=== PATIENT | female | born 1995 | race Caucasian/White ===

== ENCOUNTER 2018-04-27 11:39 | Day surgery (SDC) | payer OTHER ==
[~2018-04-27 11:39] MED LIST: Buffered Lidocaine 0.9% SYRIN* 5 ML/SYR SYRINGE INTRADERM ONE
[2018-04-27] MEDS ORDERED: fentaNYL* 50 MCG/ML 2 ML VIAL (100 MCG VIAL) ONE (12:32)
[2018-04-27] MEDS ORDERED: Midazolam* 1 MG/ML 5 ML VIAL (5 MG) ONE (12:32)
[2018-04-27] MEDS ORDERED: DiMENhydriNATE IV* 50 MG/ML VIAL IV PUSH PRN (12:44)
[2018-04-27] MEDS ORDERED: Naloxone* 0.4 MG/ML 1 ML VIAL IV PRN (12:44)
[2018-04-27] MEDS ORDERED: Acetaminophen TAB* 325 MG PO PRN (12:44)
[2018-04-27] MEDS ORDERED: Midazolam* 1 MG/ML 2 ML VIAL (2 MG) ONE (13:09)
[2018-04-27] MEDS ORDERED: Ondansetron INJ* 2 MG/ML VIAL ONE (13:26)
[2018-04-27] MEDS ORDERED: Propofol* 10 MG/ML 20 ML BTL ONE (13:26)
[2018-04-27] MEDS ORDERED: Lidocaine 2% PF * 5 ML VIAL ONE (13:26)
[2018-04-27 13:46] VITALS: BP 122/75
--- NOTE | 2018-04-28 06:36 | PRO ---
CC: Dr. Berman.* DATE OF PROCEDURE: 04/27/18 [facility] PROCEDURE: EGD with biopsy. REFERRING PHYSICIAN: Dr. Berman. INDICATION: Pre-bariatric screening. No GI symptoms. MEDICATIONS: Given by Anesthesia. DESCRIPTION OF PROCEDURE: Full disclosure of risk was reviewed with the patient as detailed on the consent form. The patient was placed in the left lateral decubitus position and monitored with continuous pulse oximetry, interval blood pressure monitoring, and direct observation. A bite-block was placed between the teeth. An Olympus gastroscope was then inserted into the patient's mouth and advanced down the esophagus, into the stomach and into the distal duodenum. The findings are described below. FINDINGS: Esophagus was a normal tubular structure without rings or strictures. The GE junction and Z-line occurred at the same level. There was a slight textural change at the Z-line, although biopsies were not obtained as there was not more than a 1-cm proximal tongue of abnormal mucosa. Additionally , the patient was having some difficulties sedating well. The scope was advanced into the stomach. The stomach was examined in forward and retroflexed views. The gastric mucosa was mildly erythematous in the antrum. There are no erosions or ulcers. Biopsy obtained for CLOtest. The scope was then advanced into the duodenum. The duodenum was normal in appearance to the 3rd portion. The scope was then withdrawn from the patient. The patient tolerated the procedure well and recovered well in the GI recovery area. IMPRESSION: 1. Mild gastric erythema and slight textural change in the Z-line may suggest some acid reflux. We will await CLOtest results. 2. Otherwise, normal exam. RECOMMENDATION: Consider H2 rosi or PPI use for any GI symptoms. Thank you very much for this referral. [id number]/[facility] #: [id number] [facility]
== END 2018-04-27 14:12 | disposition home or self-care (01) ==
LOC: OR 11:39
PROVIDERS: ATTEND Internal Medicine Gastroenterology
DX: E66.9 Obesity, unspecified (principal); Z68.44 Body mass index [BMI] 60.0-69.9, adult; Z01.818 Encounter for other preprocedural examination; J45.909 Unspecified asthma, uncomplicated; F41.9 Anxiety disorder, unspecified
CPT/HCPCS: 87077; J2250; J2405; J2704; J3010

== ENCOUNTER 2018-07-13 11:50 | Inpatient (IN) | payer OTHER ==
[~2018-07-13 11:50] MED LIST changes: -Buffered Lidocaine 0.9% SYRIN* 5 ML/SYR SYRINGE INTRADERM ONE; +Buffered Lidocaine 1% SYRIN* 1 ML/SYRINGE INTRADERM ONE; +Famotidine IV* 10 MG/ML 2 ML (20 mg) IV ONE; +Lactated Ringers 1000 ML Bag* 1,000 ML IV SCH
[2018-07-13] MEDS ORDERED: Famotidine IV* 10 MG/ML 2 ML (20 mg) ONE (12:25)
[2018-07-13] MEDS ORDERED: Heparin VIAL(*) 5000 UNITS/ML VIAL (FIVE THOUSAND) ONE (12:25)
[2018-07-13] MEDS ORDERED: ceFAZolin 2 GM PREMIX in ORs 2 GM/50 ML BAG IVPB ONE (12:25)
[2018-07-13] MEDS ORDERED: ceFAZolin 1 GM ADVAN(*) 1 GM ADDV.VIAL IVPB ONE (12:25)
[2018-07-13] MEDS ORDERED: Ondansetron INJ* 2 MG/ML VIAL ONE ×2 (13:04→17:36)
[2018-07-13] MEDS ORDERED: Dexamethasone IV* 4 MG/ML 1 ML (4 MG) ONE (13:04)
[2018-07-13] MEDS ORDERED: Ketorolac INJ* 30 MG/ML 1 ML VIAL ONE (13:04)
[2018-07-13] MEDS ORDERED: Propofol* 10 MG/ML 20 ML BTL ONE (13:04)
[2018-07-13] MEDS ORDERED: Lidocaine 2% PF * 5 ML VIAL ONE (13:04)
[2018-07-13] MEDS ORDERED: fentaNYL* 50 MCG/ML 5 ML VIAL (250 MCG VIAL) ONE ×3 (13:05→15:09)
[2018-07-13] MEDS ORDERED: Rocuronium* 10 MG/ML VIAL ONE ×2 (13:05→14:32)
[2018-07-13] MEDS ORDERED: Midazolam* 1 MG/ML 5 ML VIAL (5 MG) ONE (13:06)
[2018-07-13] MEDS ORDERED: Bupivacaine 0.25% W/EPI* 10 ML SDV ONE ×2 (13:42→14:48)
[2018-07-13] MEDS ORDERED: Methylene Blue 0.5 %* 50 MG/10 ML AMP IV ONE (13:42)
[2018-07-13] MEDS ORDERED: Bupivacaine 0.5% W/EPI SDV* 30 ML VIAL ONE (14:46)
[2018-07-13] MEDS ORDERED: Glycopyrrolate IV* 0.2 MG/ML 1 ML VIAL ONE (16:06)
[2018-07-13] MEDS ORDERED: Neostigmine Methylsulfate* 1 MG/ML 10 ML VIAL (1 mg/ml) ONE (16:06)
[2018-07-13] MEDS ORDERED: HYDROmorphone INJ1* 1 MG/ML SYRINGE ONE (16:11)
[2018-07-13] MEDS ORDERED: Naloxone* 0.4 MG/ML 1 ML VIAL IV PRN (16:23)
[2018-07-13] MEDS ORDERED: Ondansetron INJ* 2 MG/ML VIAL IV PRN ×2 (16:23→16:52)
[2018-07-13] MEDS ORDERED: fentaNYL* 50 MCG/ML 2 ML VIAL (100 MCG VIAL) IV PRN (16:23)
[2018-07-13] MEDS ORDERED: Acetaminophen ADULT LIQ* 650 MG/20.3 ML UDC PO PRN (16:52)
--- NOTE | 2018-07-13 16:52 | OP ---
Operative Report - Blank - Operative Report Date of Operation: 07/13/18 Note: Brief Operative Note Preop Dx: morbid obesity Postop Dx: same Procedure: laparoscopic annalisa en y gastric bypass Anesthesia: GET Surgeon: Cullen Pump House Operator: JIM Chang Fluids: 2000 ml RL EBL: < 50 ml Specimen: none Drains:none Findings: dictated
[2018-07-13] MEDS ORDERED: HYDROmorphone INJ1* 1 MG/ML SYRINGE IV SLOW PU PRN (16:56)
[2018-07-13] MEDS ORDERED: Albuterol HFA INHALER* 8 gm MDI INH PRN (16:57)
[2018-07-13] MEDS ORDERED: hydrALAZINE IV* 20 MG/ML VIAL ONE (17:23)
[2018-07-13] MEDS ORDERED: fentaNYL* 50 MCG/ML 2 ML VIAL (100 MCG VIAL) ONE (17:36)
[2018-07-13] MEDS: Ketorolac INJ* 30 MG/ML 1 ML VIAL IV PRN (19:21)
[2018-07-13] MEDS: Lactated Ringers 1000 ML Bag* 1,000 ML IV SCH (19:22)
--- NOTE | 2018-07-13 19:37 | OP ---
CC: Jennifer Al NP; [facility] * DATE OF OPERATION: 07/13/18 - ROOM #351 DATE OF : [birth year] SURGEON: Van Berman MD MAIL HANDLER EQUIPMENT OPERATOR: JIM Collier ANESTHESIOLOGIST: Dr. Phelps. ANESTHESIA: General anesthesia. PRE-OP DIAGNOSIS: Clinically severe obesity. POST-OP DIAGNOSIS: Clinically severe obesity. OPERATIVE PROCEDURE: Laparoscopic Riley-en-Y gastric bypass. ESTIMATED BLOOD LOSS: Minimal. FLUIDS: Crystalloid fluid given, please see record. SPECIMEN: None. DRAINS: None. COUNTS: Lap pad count and instrument count correct at the end of the procedure. DESCRIPTION OF PROCEDURE: The patient was identified in the preoperative area, marked, consent was signed. She was taken back to the operating room, placed on the operating table in the supine position. Preoperative antibiotics were given. Sequential devices were placed on bilateral lower extremities. General anesthesia was induced. The patient's abdomen was prepped and draped in standard surgical fashion. A time-out was performed. Folds of the umbilicus were elevated anteriorly and a Veress needle was inserted into the abdominal cavity, which was then allowed to insufflate to a pressure of 15 mmHg. The patient tolerated insufflation well. [place] between the xiphoid and the umbilicus, a 12-mm trocar was inserted. Laparoscope was inserted through this. There was no evidence of injury from the trocar insertion or from the Veress needle which was then removed. Additional trocars were then placed in the following positions: A 12-mm and a 5 -mm in the left upper quadrant, and a 12-mm and a 5-mm in the right upper quadrant. The liver appeared enlarged. A Layton retractor was inserted through a subxiphoid incision and the left lateral lobe of the liver was reflected anteriorly to the right exposing the gastroesophageal fat pad and the hiatus. There appeared to be no hiatal hernia. The liver was enlarged and it was somewhat difficult to get under the liver, but we had a good imaging of the proximal stomach. Next, the gastroesophageal fat pad was dissected free and we extended our dissection to the left racheal. Next, a retrogastric tunnel was made at the third crossing vessel and a 45-mm beltrán SANDEE stapling device was fired across this. We completed a small stomach pouch with an additional 60-mm beltrán SANDEE stapling device followed by a 60-mm purple SANDEE stapling device with reinforcement strips as we extended this up towards our initial dissected area. There appeared to be no posterior hiatal hernia. The pouch was of appropriate sizing and the Evan tube was passed by the anesthesiologist into the distal stomach to determine its sizing. Next, the omentum was reflected superiorly. Transverse colon was identified. Ligament of Treitz identified and then approximately 50 cm was counted off from the ligament of Treitz. We made a window through the base of the mesentery where we would likely do our transection of the small intestine. This was held up in apposition to the stomach pouch and sutured with stay sutures using 2-0 silk sutures in interrupted fashion. Next, gastrotomy was made over the Evan tube with electrocautery and enterotomy was made on what would become the biliopancreatic limb assuring its positioning. The two were then mated with a 30-mm beltrán SANDEE stapling device, firing it through the entirety of the stapler and then we looked through, the hemostasis was good. The anastomosis was wide open and we reapproximated the common defect with a running #3 PDS suture, starting superiorly and inferiorly and tying them in the middle. Next, a Evan tube was passed through the anastomosis with ease into the proximal Riley limb. We backed this out to allow us to transect the small bowel at the previous window. This was not too long, just under 2 cm from the anastomosis. Once this was stapled off, a methylene blue dye test was performed. The Evan tube was reinserted through the anastomosis into the proximal Riley limb, which was then clamped. Methylene blue dye test was performed in a standard fashion with a gauze behind the anastomosis and on top of it, it showed no evidence of extravasation after insertion of a fair amount of blue dye that could be seen both in the proximal Riley limb and the stomach pouch. This dye was removed by the anesthesiologist and the gauze was removed and it was negative for any extravasation, it was passed off. Next, the Riley limb was counted off approximately 100 cm, we brought what would become the jejunojejunostomy to our biliopancreatic limb. Enterotomies were made in a standard fashion and a 60-mm SANDEE stapler beltrán was fired to create the anastomosis. The defect was reapproximated with interrupted 2-0 silk sutures in a [id number] fashion and the mesenteric defect was similarly closed. Review of the abdomen showed good hemostasis. The liver retractor was removed. The liver folded down on top entirely over the gastrojejunostomy anastomosis. The patient was placed into a neutral position and the abdomen was allowed to collapse. Trocars were removed under direct vision. All incisions were reapproximated with 4- 0 Monocryl subcuticular sutures followed by Steri-Strips and sterile dressing. The patient tolerated the procedure well, was woken up and transferred to the PACU in stable condition. [id number]/[facility] #: [id number] LUIS MIGUEL
[2018-07-13] MEDS: Famotidine IV* 10 MG/ML 2 ML (20 mg) IV SLOW PU SCH (22:05)
[2018-07-13] MEDS: Heparin VIAL(*) 5000 UNITS/ML VIAL (FIVE THOUSAND) SUBCUT SCH (22:07)
[2018-07-14] MEDS: Lactated Ringers 1000 ML Bag* 1,000 ML IV SCH ×2 (00:32→07:34)
[2018-07-14] MEDS: HYDROmorphone INJ1* 1 MG/ML SYRINGE IV SLOW PU PRN ×2 (00:34→10:24)
[2018-07-14] MEDS: Heparin VIAL(*) 5000 UNITS/ML VIAL (FIVE THOUSAND) SUBCUT SCH ×3 (06:02→21:25)
[2018-07-14] MEDS: Famotidine IV* 10 MG/ML 2 ML (20 mg) IV SLOW PU SCH ×2 (08:39→21:25)
[2018-07-14] MEDS: Ketorolac INJ* 30 MG/ML 1 ML VIAL IV PRN ×3 (08:45→21:22)
[2018-07-14] MEDS: D5W 1/2 NS KCl 20 Meq 1000 ML* 1,000 ML IV SCH ×2 (15:39→23:42)
[2018-07-14] MEDS: HYDROcodone/ACET. 7.5/325 LIQ* 15 ML UDC PO PRN (15:39)
--- NOTE | 2018-07-14 19:13 | PN ---
Progress Note - Progress Note Date of Service: 07/14/18 SOAP: Subjective: Pt seen and examined. Doing well , no nausea Objective: Temp Pulse Resp BP Pulse Ox 98.1 F 89 18 146/77 93 07/14/18 16:51 07/14/18 16:51 07/14/18 17:42 07/14/18 16:51 07/14/18 16:51 Intake & Output 07/14/18 07/14/18 07/14/18 06:59 14:59 22:59 Intake Total 178 407 6682 Output Total 600 Balance 664 387 4308 lungs clear abdo: soft/ ND/ NT dressing intact ext wnl UGI wnl Assessment: POD1 rygb Plan: advance diet pain control d/c planning
[2018-07-15] MEDS: Heparin VIAL(*) 5000 UNITS/ML VIAL (FIVE THOUSAND) SUBCUT SCH (05:31)
[2018-07-15] MEDS: HYDROcodone/ACET. 7.5/325 LIQ* 15 ML UDC PO PRN (05:37)
[2018-07-15] MEDS: D5W 1/2 NS KCl 20 Meq 1000 ML* 1,000 ML IV SCH (07:45)
[2018-07-15] MEDS: Famotidine IV* 10 MG/ML 2 ML (20 mg) IV SLOW PU SCH (09:28)
[2018-07-15] MEDS: Ketorolac INJ* 30 MG/ML 1 ML VIAL IV PRN (10:16)
[2018-07-15 14:08] VITALS: BP 134/74
== END 2018-07-15 15:51 | disposition home or self-care (01) | DRG 621 ==
LOC: AA 11:50 → SSU 18:56
PROVIDERS: ADMIT Surgery; ATTEND Surgery
PROC: 0D164ZA Bypass Stomach to Jejunum, Percutaneous Endoscopic Approach (ICD-10-PCS; principal; 2018-07-13 13:45)
DX: E66.01 Morbid (severe) obesity due to excess calories (principal); R73.03 Prediabetes; G47.33 Obstructive sleep apnea (adult) (pediatric); F32.9 Major depressive disorder, single episode, unspecified; F41.9 Anxiety disorder, unspecified; J45.909 Unspecified asthma, uncomplicated; G43.909 Migraine, unspecified, not intractable, without status migrainosus; Z88.2 Allergy status to sulfonamides; Z80.8 Family history of malignant neoplasm of other organs or systems; Z82.49 Family history of ischemic heart disease and other diseases of the circulatory system; Z68.44 Body mass index [BMI] 60.0-69.9, adult; Z83.3 Family history of diabetes mellitus; Z83.49 Family history of other endocrine, nutritional and metabolic diseases
CPT/HCPCS: 43644; 74246; 81025; A9270-GY; J0360; J0690; J1100; J1170; J1644; J1885; J2250; J2405; J2704; J2710; J3010